=== PATIENT | male | born 1980 | race Caucasian/White ===

== ENCOUNTER 2022-01-27 13:13 | Emergency (ER) | payer BC, OTHER ==
[2022-01-27] MEDS ORDERED: Proparacaine 0.5% Ophth Soln 15 ML Bottle EYEBOTH STA (13:49)
[2022-01-27] MEDS ORDERED: Tetracaine HCl/PF 0.5% 4 ML Bottle EYEBOTH ONE (13:53)
[2022-01-27] MEDS ORDERED: Tetracaine HCl/PF 0.5% 4 ML Bottle EYERT ONE (13:57)
== END 2022-01-27 14:39 | disposition home or self-care (01) ==
LOC: MW.ED 13:13
DX: H10.31 Unspecified acute conjunctivitis, right eye (principal)
CPT/HCPCS: 99282

== ENCOUNTER 2025-01-28 06:27 | Day surgery (SDC) | payer BC, OTHER ==
[~2025-01-28 06:27] MED LIST: ceFAZolin 2 GM in Water For Injection, Sterile 20 ML IVPUSH ONE
[2025-01-28] MEDS ORDERED: Ropivacaine 0.5% 5 MG/ML 30 ML SDV ONE (06:42)
[2025-01-28] MEDS ORDERED: dexmedeTOMIDine HCl 200 MCG/2 ML SDV ONE (06:42)
[2025-01-28] MEDS ORDERED: fentaNYL 100 MCG/2 ML SDV ONE ×2 (06:45→09:36)
[2025-01-28] MEDS ORDERED: Scopalamine 1mg/3day Transdermal Patch ONE (06:45)
[2025-01-28] MEDS ORDERED: Dexamethasone 4 MG/ML 5 ML MDV ONE (06:45)
[2025-01-28] MEDS ORDERED: Ondansetron 4 MG/2 ML SDV ONE (06:45)
[2025-01-28] MEDS ORDERED: Magnesium Sulfate (4.06 MEQ/ML) 5 GM/10 ML SDV ONE (06:46)
[2025-01-28] MEDS ORDERED: Lidocaine 2% 11 ML Jelly Filled Syringe ONE (06:46)
[2025-01-28] MEDS ORDERED: Propofol 200 MG/20 ML SDV ONE (06:48)
[2025-01-28] MEDS: Lactated Ringers 1,000 ML IV SCH (06:50)
[2025-01-28] MEDS ORDERED: propofoL 1,000 MG/100 ML 200 ML ONE (06:54)
[2025-01-28] MEDS ORDERED: Naloxone 0.4 MG/ML SDV IVPUSH PRN (07:44)
[2025-01-28] MEDS ORDERED: fentaNYL 50 MCG/ML SDV IVPUSH PRN (07:44)
[2025-01-28] MEDS ORDERED: Albuterol 0.083% 2.5 MG/3 ML Neb Soln NEB PRN (07:44)
[2025-01-28] MEDS ORDERED: Ondansetron 4 MG/2 ML SDV IVPUSH PRN (07:44)
[2025-01-28] MEDS ORDERED: Morphine 10 MG/ML SDV ONE (08:15)
[2025-01-28] MEDS ORDERED: Ketamine HCL/NACL, ISO-OSM 50 MG/5 ML Syringe ONE (08:22)
[2025-01-28] MEDS ORDERED: Ketorolac 30 MG/ML SDV ONE (08:22)
== END 2025-01-28 12:15 | disposition home or self-care (01) ==
LOC: MW.SDS 06:27
PROVIDERS: ATTEND Surgery
DX: K40.90 Unilateral inguinal hernia, without obstruction or gangrene, not specified as recurrent (principal); K42.9 Umbilical hernia without obstruction or gangrene; D17.6 Benign lipomatous neoplasm of spermatic cord; E66.9 Obesity, unspecified; F17.210 Nicotine dependence, cigarettes, uncomplicated; Z68.34 Body mass index [BMI] 34.0-34.9, adult; Z79.899 Other long term (current) drug therapy
CPT/HCPCS: 49591; 49650; 64488; A9270; C1781; J0665; J0690; J1100; J1596; J1885; J2003; J2272; J2704; J2765; J2795; J3010; J3475; J7120; J7999; 00830; J2371; J2405; J3490